=== PATIENT | male | born 1950 | race Caucasian/White ===

== ENCOUNTER → 2019-07-14 | Outpatient (CLI) | payer MEDICARE, MEDICAID ==
[~2019-07-14] MED LIST: ARPZ30T PO; ESCI20TA2 PO; LORA10TA7 PO; LOXA25CA2 PO; TRAZ150T42 PO; TRZ100T PO
--- NOTE | 2019-07-14 15:43 | Diagnostic Imaging Report ---
EXAMINATION: CT chest, low-dose lung cancer screening. INDICATION: 37-cxrh-xayd smoking history. TECHNIQUE: Routine images of the thorax were obtained using the CT low-dose lung cancer screening protocol. FINDINGS: The previous CT chest exam performed on 06/21/2014 noted a stable 6 mm nodule along the major fissure. That finding is again evident and no different (image 113/183). The 10 mm nodular density in the darryl-fissural region on the left seen previously is also unchanged (image 89/183). No other parenchymal abnormality is identified. There is no sign of failure, pneumonia, or a pleural effusion to indicate an acute abnormality. The chronic pulmonary changes involving the lungs including the hyperdense branching dilated bronchi in the posterior aspect of the left upper lobe seen previously are again visualized and no different. The heart size is within normal limits and stable. The aorta is not abnormally dilated. There is no obvious mediastinal or hilar adenopathy. The thyroid gland was not well visualized, but there is no definite mass arising from the gland. The sections through the upper abdomen again show a 1.7 cm cyst in the right lobe of the liver near the dome of the diaphragm. The bone windows show no evidence for a fracture or for a destructive lesion. IMPRESSION: 1. The parenchymal lung nodules seen previously are again evident and do not appear to have changed significantly. No new parenchymal abnormality is noted. A follow-up CT chest exam in one year would be recommended for continued evaluation. 2. There is chronic pulmonary disease, but there is no sign of an acute cardiopulmonary abnormality. LUNG-RADS CATEGORY: 2. Dictated by: Dictated on workstation # [id number]
== END ==
LOC: RAD 15:00
PROVIDERS: ATTEND Nurse Practitioner Community Health
DX: Z12.2 Encounter for screening for malignant neoplasm of respiratory organs (principal); F17.210 Nicotine dependence, cigarettes, uncomplicated; J98.4 Other disorders of lung; R91.8 Other nonspecific abnormal finding of lung field